=== PATIENT | female | born 1955 | race Two or more races ===

== ENCOUNTER 2020-01-21 11:45 | Inpatient (IN) | payer MEDICAID, OTHER ==
[~2020-01-21] VITALS: Ht 157.5 cm; Wt 102.0 kg
[~2020-01-21 11:45] MED LIST: BENA20TA14; CEPH500C; METF-370; PRAVASTATIN 40 MG
[2020-01-21 14:13] LABS: Basophils # (auto) 0 10 ^3/uL (0-0.2); Basophils % (auto) 0.3 % (0.0-2.0); Eosinophils # (auto) 0.1 10 ^3/uL (0-0.8); Eosinophils % (auto) 0.9 % (0.0-7.0); Hematocrit 39.8 % (36.0-46.0); Hemoglobin 12.8 g/dL (12.2-16.2); Lymphocytes # (auto) 1.1 10 ^3/uL (0.4-5.4); Mean Corpuscular Hemoglobin 28.4 pg (28.0-32.0); Mean Corpuscular Volume 88.7 fL (80.0-100.0); Monocytes # (auto) 0.4 10 ^3/uL (0-1.3); Monocytes % (auto) 5.3 % (0.0-12.0); Neutrophils # (auto) 6.7 10 ^3/uL (1.6-8.6); Neutrophils % (auto) 80.5 % (37.0-80.0); Nucleated Red Blood Cells % 0.1 %; Platelet Count (auto) 194 10^3/uL (140-450); Red Blood Cells 4.49 10^6/uL (4.0-5.20); Red Cell Distribution Width 14.5 % (11.8-14.3); White Blood Cell 8.3 10^3/uL (4.4-10.8)
[2020-01-21 14:23] LABS: Urine Bacteria NONE SEEN /hpf (None Seen); Urine Blood 3+ /uL (Negative); Urine WBC 8465 /hpf (0 - 5); Urine WBC Clumps PRESENT /hpf (None Seen)
[2020-01-21] MEDS ORDERED: ACETAMINOPHEN/CODEINE#3 (300/30mg) TAB PO ONE (14:45)
[2020-01-21] MEDS ORDERED: cefTRIAXone SOD 1,000 MG VL ONE (14:50)
[2020-01-21] MEDS ORDERED: cefTRIAXone 1GM/50ML D5W 50 ML IV ONE (15:00)
[2020-01-21] MEDS ORDERED: MORPHINE SULF INJ 2 MG/ML SYRINGE 1ML IV ONE (15:45)
[2020-01-21] MEDS ORDERED: SODIUM CHLORIDE 0.9% 1,000 ML IV ONE (15:45)
[2020-01-21] MEDS ORDERED: ONDANSETRON HCL 4 MG/2 ML VIAL IV ONE (15:45)
[2020-01-21] MEDS ORDERED: MORPHINE SULF INJ 2 MG/ML SYRINGE 1ML IV PRN ×3 (18:00→21:15)
[2020-01-21] MEDS ORDERED: NITROGLYCERIN 0.4 MG SL TAB SL PRN ×2 (18:00→21:15)
[2020-01-21 19:30] LABS: Anion Gap 10 (5-15); Blood Urea Nitrogen 24 mg/dL (7-18); Calcium 9.4 mg/dL (8.5-10.1); Carbon Dioxide 21 mmol/L (21-32); Chloride 106 mmol/L (98-107); Glucose 183 mg/dL (74-106); Sodium 137 mmol/L (136-145)
[2020-01-21] MEDS ORDERED: METF-929 PO (19:55)
[2020-01-21] MEDS ORDERED: BENA40TA83 PO (19:55)
[2020-01-21] MEDS ORDERED: GLIP5TAB12 PO (19:55)
[2020-01-21] MEDS ORDERED: PRAV20TA3 PO (19:55)
--- NOTE | 2020-01-21 20:25 | NUR ---
Received SBAR from Kurt, he states they will be bringing the patient up soon.
[2020-01-21 20:42] LABS: BUN/Creatinine Ratio 40.7; GFR African American 132 mL/min; GFR Non-African American 109 mL/min
[2020-01-21 20:43] LABS: Alanine Aminotransferase 28 U/L (13-56); Alkaline Phosphatase 88 U/L (45-117); Aspartate Aminotransferase 19 U/L (15-37); Bilirubin, Total < 0.1 mg/dL (0.2-1.0); Total Protein 7.9 g/dL (6.4-8.2)
--- NOTE | 2020-01-21 21:10 | NUR ---
Telemetry admit from ER RA ROXANAQUEL admitted to Telemetry unit after SBAR received. Patient oriented to KISHAN chapa RN, unit, room, bed, and unit policies regarding patient care and visiting hours. Patient now on continuous telemetry monitoring, tele box # 59 and telemetry reading on arrival to unit is NSR at 72bpm. Patient weighed by bedscale and encouraged to call if they need something. All questions and concerns addressed, patient verbalized understanding. Three way urethral hernandez is in place and hung below bladder, connected to continuous bladder irrigation. Urine is bright red/pink. Hernandez is free of kinks and draining. Patient is A/O x4, skin is intact, IV to right hand 20g, on RA, she is ambulatory. Call light is within reach, side rails up x2, bed is in the lowest position. Instructed on POC and to call for assistance.
[2020-01-21 21:15] VITALS: BP 120/58
[2020-01-21] MEDS ORDERED: DEXTROSE (50%) 50ML SYRG IV PRN (21:15)
[2020-01-21] MEDS ORDERED: HYDROcodone-ACET 5/325MG TAB PO PRN (21:15)
[2020-01-21] MEDS ORDERED: LORazepam 0.5 MG TAB PO PRN (21:15)
[2020-01-21] MEDS ORDERED: ACETAMINOPHEN 325 MG TAB PO PRN (21:15)
[2020-01-21] MEDS ORDERED: ALUM & MAG HYDROX-SIMETH LIQ(MAALOX) 30 ML PO PRN (21:15)
[2020-01-21] MEDS ORDERED: DOCUSATE SOD 100 MG CAP PO PRN (21:15)
[2020-01-21] MEDS ORDERED: ONDANSETRON HCL 4 MG/2 ML VIAL IV PRN (21:15)
[2020-01-21] MEDS ORDERED: LISINOPRIL 10 MG TAB PO ONE (21:15)
[2020-01-21 21:45] VITALS: BP 120/58
[2020-01-21] MEDS: ATORVASTATIN 20 MG TAB PO SCH (22:49)
[2020-01-21] MEDS: SODIUM CHLORIDE 0.9% 1,000 ML IV SCH (22:49)
[2020-01-21] MEDS: ACCU-CHEK COMFORT CURVE STRIP VI SCH (22:49)
[2020-01-21] MEDS: InsuLIN REG 1unit/0.01ml Soln (100units/ml) SC SCH (22:50)
[2020-01-21 23:22] LABS: INR 1.03 (0.9-1.15); Partial Thromboplastin Time 26.6 sec (23.0-31.2)
[2020-01-22 05:00] VITALS: BP 126/61
--- NOTE | 2020-01-22 05:10 | NUR ---
[facility] INHOUSE COVID SWAB COLLECTED AND WALKED TO LAB.
[2020-01-22] MEDS: ACCU-CHEK COMFORT CURVE STRIP VI SCH ×4 (06:35→21:29)
[2020-01-22] MEDS: InsuLIN REG 1unit/0.01ml Soln (100units/ml) SC SCH ×4 (06:35→21:30)
--- NOTE | 2020-01-22 07:40 | NUR ---
Opening Shift Note Assumed care of patient, awake and alert. No S/S of distress/SOB or pain. Instructed on POC and to call for assist PRN, will continue to monitor for changes Q1hr and PRN.
[2020-01-22] MEDS: LISINOPRIL 10 MG TAB PO SCH (08:39)
[2020-01-22 09:00] VITALS: BP 139/86
[2020-01-22 09:18] LABS: Cholesterol 236 mg/dL (< 200); HDL Cholesterol 61 mg/dL (40-59); LDL Cholesterol 165 mg/dL (< 100); Triglycerides 118 mg/dL (< 150)
[2020-01-22] MEDS ORDERED: CEFTRIAXONE SODIUM 2 GM in D5W 5% 50 ML IV SCH (10:00)
--- NOTE | 2020-01-22 10:14 | NUR ---
spoke to patient son password provided regarding plan of care. pt son asked how she can go to a different hospital for care, explained options to pt son pt son verbalized understanding
--- NOTE | 2020-01-22 10:33 | NUR ---
called OR to inquire on time and inform them pt is Estonian speaking and states the procedure hasn't been explained to her. per or they will call for her to come down i about an hour
[2020-01-22] MEDS: SODIUM CHLORIDE 0.9% 1,000 ML IV SCH (11:04)
--- NOTE | 2020-01-22 11:40 | NUR ---
MD LINN ROUNDED ON PATIENT
--- NOTE | 2020-01-22 12:39 | NUR ---
pt taken to pre op for procedure
[2020-01-22 13:04] VITALS: BP 125/54
[2020-01-22] MEDS ORDERED: ceFAZolin 1GM/50ML 50 ML IV ONE (14:17)
[2020-01-22] MEDS ORDERED: MEPERIDINE HCL (25 MG/ML) 1ML VIAL ONE (14:24)
[2020-01-22] MEDS ORDERED: METOCLOPRAMIDE HCL 5MG/ml INJ 2ml VIAL IV ONE (14:25)
[2020-01-22] MEDS ORDERED: MIDAZOLAM HCL 1MG/1ML-2 ML VIAL ONE (14:25)
[2020-01-22] MEDS ORDERED: fentaNYL CITRATE 100 MCG/2 ML VL ONE (14:25)
[2020-01-22] MEDS ORDERED: ePHEDrine SULFATE 50 MG/ML AMP IV PRN (14:45)
[2020-01-22] MEDS ORDERED: MORPHINE SULFATE 4 MG/ML SYR/VIAL IV PRN (14:45)
[2020-01-22] MEDS ORDERED: ONDANSETRON HCL 4 MG/2 ML VIAL IV PRN (14:45)
[2020-01-22] MEDS ORDERED: MIDAZOLAM HCL 1MG/1ML-2 ML VIAL IV PRN (14:45)
[2020-01-22] MEDS ORDERED: LABETALOL HCL 5 MG/ML 4ML SYRINGE IV PRN (14:45)
[2020-01-22] MEDS ORDERED: HYDROmorphone HCL 2 MG/ML VL IV PRN (14:45)
[2020-01-22] MEDS ORDERED: PROPOFOL 10 MG/ML 20 ML IV ONE (15:00)
[2020-01-22] MEDS ORDERED: DexAMETHasone SOD PHOS 10MG/1ML VIAL INJ ONE (15:00)
--- NOTE | 2020-01-22 15:50 | NUR ---
PT BACK IN ROOM PER KAVIN CURIEL IN PACU ESTELITA TOLD HER TO DISCONTINUE THE CBI
--- NOTE | 2020-01-22 16:30 | NUR ---
TEMITOPE CALLED BACK INFORMED HER THAT ESTELITA CHANGED THE ORDERS PT HAS DIET
[2020-01-22 17:00] VITALS: BP 135/54
--- NOTE | 2020-01-22 19:00 | NUR ---
Opening Shift Note Assumed care of patient, awake and alert. No S/S of distress/SOB or pain. Instructed on POC and to call for assist PRN, will continue to monitor for changes Q1hr and PRN. Patient in the lowest possible position with call light within reach.
[2020-01-22 20:00] VITALS: BP 136/68
--- NOTE | 2020-01-22 20:00 | NUR ---
Patient complained of pressure when she pees, upon examination the Prather was not flowing properly, secured Prather to side of right thigh and notice the urine begin to flow. Educated patient to let staff know if pressure builds again, in case of blocked flow. Will continue to monitor patient.
[2020-01-22] MEDS: ATORVASTATIN 20 MG TAB PO SCH (21:29)
[2020-01-22 22:00] VITALS: BP 136/68
[2020-01-23] MEDS: SODIUM CHLORIDE 0.9% 1,000 ML IV SCH (02:15)
[2020-01-23 05:00] VITALS: BP 113/50
[2020-01-23 06:32] LABS: Basophils # (auto) 0 10 ^3/uL (0-0.2); Basophils % (auto) 0.5 % (0.0-2.0); Eosinophils # (auto) 0.1 10 ^3/uL (0-0.8); Hematocrit 37.3 % (36.0-46.0); Hemoglobin 12.4 g/dL (12.2-16.2); Lymphocytes # (auto) 1.4 10 ^3/uL (0.4-5.4); Lymphocytes % (auto) 15.5 % (10.0-50.0); Mean Corpuscular Hgb Conc. 33.2 g/dL (32.0-36.0); Mean Corpuscular Volume 90.4 fL (80.0-100.0); Monocytes # (auto) 0.5 10 ^3/uL (0-1.3); Monocytes % (auto) 5.8 % (0.0-12.0); Neutrophils # (auto) 6.9 10 ^3/uL (1.6-8.6); Neutrophils % (auto) 77.2 % (37.0-80.0); Platelet Count (auto) 190 10^3/uL (140-450); Red Blood Cells 4.13 10^6/uL (4.0-5.20); Red Cell Distribution Width 14.6 % (11.8-14.3)
[2020-01-23] MEDS: ACCU-CHEK COMFORT CURVE STRIP VI SCH ×2 (06:45→12:30)
[2020-01-23 06:47] LABS: Potassium 3.7 mmol/L (3.5-5.1)
[2020-01-23] MEDS: InsuLIN REG 1unit/0.01ml Soln (100units/ml) SC SCH ×2 (06:51→13:21)
[2020-01-23 06:52] LABS: BUN/Creatinine Ratio 21.2; Calcium 8.1 mg/dL (8.5-10.1)
--- NOTE | 2020-01-23 08:30 | NUR ---
Prather Leaking Patient complained that bed is wet. Prather noted to be leaking. Added 1ml saline to balloon. Will reassess.
[2020-01-23 09:00] VITALS: BP 137/63
[2020-01-23] MEDS ORDERED: cefTRIAXone 1GM/50ML D5W 50 ML IV SCH (09:00)
[2020-01-23] MEDS: LISINOPRIL 10 MG TAB PO SCH (09:04)
--- NOTE | 2020-01-23 10:00 | NUR ---
Prather Catheter No more leak noted to Prather catheter.
--- NOTE | 2020-01-23 11:00 | NUR ---
Hospitalist Jjing Dr. Love at bedside with Belarusian speaking RN.
--- NOTE | 2020-01-23 11:57 | NUR ---
Nutrition Assessment Notes please see attached link for complete assessment Est Energy needs ABW 76 [id number] kcals (17-20 kcal/kgABW), Est Protein needs: 76-83 gms/day (1.0-1.1 gm/kgABW). Will continue to monitor and reassess prn. Addendum: 01/23/20 at [address] Amended: Links added.
[2020-01-23 12:58] VITALS: BP 148/75
[2020-01-23] MEDS ORDERED: CIPR-173 PO (13:59)
[2020-01-23 15:06] VITALS: BP 148/75
[2020-01-23 17:00] VITALS: BP 147/69
--- NOTE | 2020-01-23 17:00 | NUR ---
Discharge instructions given as ordered. Encourage to follow up with PMD as instructed. All questions and concerns addressed. Patient verbalized understanding. Medication reconciliation form completed and copy given to patient. IV removed with catheter intact and pressure dressing applied. Prather catheter left in place as per Dr. Ayers's order. Telemetry unit returned to ICU. Patient taken to vehicle via wheelchair with all personal belongings, accompanied by staff. No distress noted at time of departure. Explained to family members discharge instructions and importance of follow up appointment.
== END 2020-01-23 17:00 | disposition home or self-care (01) | DRG 445 ==
LOC: ER 11:45 → TELE 11:46 → TELE-WESTW 20:28
PROVIDERS: ADMIT Hospitalist; ATTEND Internal Medicine Nephrology
PROC: 0W3R8ZZ Control Bleeding in Genitourinary Tract, Via Natural or Artificial Opening Endoscopic (ICD-10-PCS; 2020-01-22)
PROC: 0TBB8ZX Excision of Bladder, Via Natural or Artificial Opening Endoscopic, Diagnostic (ICD-10-PCS; principal; 2020-01-22 14:30)
DX: N30.01 Acute cystitis with hematuria (principal); D49.4 Neoplasm of unspecified behavior of bladder; E78.5 Hyperlipidemia, unspecified; Z20.828 Contact with and (suspected) exposure to other viral communicable diseases; Z68.41 Body mass index [BMI] 40.0-44.9, adult; E11.9 Type 2 diabetes mellitus without complications; I10 Essential (primary) hypertension; E66.01 Morbid (severe) obesity due to excess calories; Z83.3 Family history of diabetes mellitus; Z79.84 Long term (current) use of oral hypoglycemic drugs
CPT/HCPCS: 36415; 71045; 74176; 80048; 80053; 80061; 81001; 82962; 83036; 84484; 85025; 85610; 85730; 86850; 86900; 86901; 87040; 93005; 96361; 96365; 96375; G0378; J0690; J0696; J1100; J1815; J2250; J2405; J2704; J7060

== ENCOUNTER 2020-02-10 16:40 | Inpatient (IN) | payer MEDICAID ==
[~2020-02-10] VITALS: Ht 162.6 cm; Wt 90.5 kg
[~2020-02-10 16:40] MED LIST changes: -BENA20TA14; +BENA40TA83 PO; -CEPH500C; +CIPR-173 PO; +GLIP5TAB12 PO; -METF-370; +METF-929 PO; +PRAV20TA3 PO; -PRAVASTATIN 40 MG
[2020-02-10 18:32] LABS: Urine Bacteria FEW /hpf (None Seen); Urine Blood 3+ /uL (Negative); Urine Mucus FEW (None Seen); Urine WBC 808 /hpf (0 - 5)
[2020-02-10 18:34] LABS: Urine Specific Gravity 1.022 (1.001-1.035)
[2020-02-10 18:39] LABS: Basophils # (auto) 0.1 10 ^3/uL (0-0.2); Basophils % (auto) 0.7 % (0.0-2.0); Eosinophils # (auto) 0.1 10 ^3/uL (0-0.8); Hematocrit 35.3 % (36.0-46.0); Hemoglobin 11.7 g/dL (12.2-16.2); Lymphocytes # (auto) 1.1 10 ^3/uL (0.4-5.4); Lymphocytes % (auto) 12.5 % (10.0-50.0); Mean Corpuscular Hemoglobin 29.4 pg (28.0-32.0); Mean Corpuscular Hgb Conc. 33.2 g/dL (32.0-36.0); Mean Corpuscular Volume 88.3 fL (80.0-100.0); Monocytes # (auto) 0.4 10 ^3/uL (0-1.3); Monocytes % (auto) 4.7 % (0.0-12.0); Neutrophils # (auto) 7.3 10 ^3/uL (1.6-8.6); Neutrophils % (auto) 81.1 % (37.0-80.0); Platelet Count (auto) 215 10^3/uL (140-450); Red Cell Distribution Width 14.5 % (11.8-14.3)
[2020-02-10 19:07] LABS: Albumin 3.5 g/dL (3.4-5.0); Calcium 8.9 mg/dL (8.5-10.1)
[2020-02-10 19:10] LABS: BUN/Creatinine Ratio 19.8; Bilirubin, Total 0.2 mg/dL (0.2-1.0); Total Protein 7.2 g/dL (6.4-8.2)
[2020-02-10] MEDS ORDERED: MORPHINE SULF INJ 2 MG/ML SYRINGE 1ML IV PRN ×3 (19:30→21:30)
[2020-02-10] MEDS ORDERED: NITROGLYCERIN 0.4 MG SL TAB SL PRN ×2 (19:30→21:30)
[2020-02-10] MEDS ORDERED: PRAV20TA3 PO (19:42)
[2020-02-10 21:30] VITALS: BP 136/68
[2020-02-10] MEDS ORDERED: ALUM & MAG HYDROX-SIMETH LIQ(MAALOX) 30 ML PO PRN (21:30)
[2020-02-10] MEDS: SODIUM CHLORIDE 0.9% 1,000 ML IV SCH (21:30)
[2020-02-10] MEDS ORDERED: ONDANSETRON HCL 4 MG/2 ML VIAL IV PRN (21:30)
[2020-02-10] MEDS ORDERED: DEXTROSE (50%) 50ML SYRG IV PRN (21:30)
[2020-02-10] MEDS ORDERED: hydrALAZINE HCL 25 MG TAB PO PRN (21:30)
[2020-02-10] MEDS ORDERED: CEFTRIAXONE SODIUM 2 GM in D5W 5% 50 ML IV ONE (21:30)
[2020-02-10] MEDS ORDERED: LORazepam 0.5 MG TAB PO PRN (21:30)
[2020-02-10] MEDS ORDERED: ACETAMINOPHEN 325 MG TAB PO PRN (21:30)
[2020-02-10] MEDS ORDERED: HYDROcodone-ACET 5/325MG TAB PO PRN (21:30)
--- NOTE | 2020-02-10 21:30 | NUR ---
Telemetry admit from ER YING SCHMIDT admitted to Telemetry unit.Patient oriented to HEIDI PEREZ, RN primary RN, unit, room, bed, and unit policies regarding patient care and visiting hours. Patient now on continuous telemetry monitoring, tele box #49 and telemetry reading on arrival to unit is SR 73. Patient placed on bedside oxygen, weighed by bedscale and encouraged to call if they need something. Patient is on continuous bladder irrigatin. Irigating clear pale fluid. No clots or blood noted. All questions and concerns addressed, patient verbalized understanding.
--- NOTE | 2020-02-10 21:42 | NUR ---
ADMISSION COMPLETE AND UPDATED RN. NOTIFIED RN OF VITALS ARE NEEDED, SKIN/ VTE, AND TEACHING RECORD.
[2020-02-10] MEDS: ACCU-CHEK COMFORT CURVE STRIP VI SCH (21:56)
[2020-02-10] MEDS: InsuLIN REG 1unit/0.01ml Soln (100units/ml) SC SCH (21:56)
[2020-02-10 22:00] VITALS: BP 136/68
[2020-02-10 22:22] LABS: Amphetamine Screen, Urine NEGATIVE (NEGATIVE); Barbiturate Scree,Urine NEGATIVE (NEGATIVE); Benzodiazephine Screen, Urine NEGATIVE (NEGATIVE); Cannabinoid Screen, Urine NEGATIVE (NEGATIVE); Cocaine Screen, Urine NEGATIVE (NEGATIVE); Opiate Scree,Urine NEGATIVE (NEGATIVE); Phencyclidine Screen, Urine NEGATIVE (NEGATIVE)
[2020-02-10] MEDS: PRAVASTATIN SODIUM 20 MG TAB PO SCH (22:43)
[2020-02-11 05:00] VITALS: BP 104/60
[2020-02-11] MEDS: InsuLIN REG 1unit/0.01ml Soln (100units/ml) SC SCH ×4 (06:43→22:31)
[2020-02-11] MEDS: ACCU-CHEK COMFORT CURVE STRIP VI SCH ×4 (06:43→22:19)
--- NOTE | 2020-02-11 07:26 | NUR ---
Closing note Endorsed care to day shift RN. NO SOB OR DISTRESS NOTED.
[2020-02-11 08:58] VITALS: BP 119/68
[2020-02-11] MEDS: CEFTRIAXONE SODIUM 2 GM in D5W 5% 50 ML IV SCH (09:53)
[2020-02-11] MEDS: LISINOPRIL 20 MG TAB PO SCH (10:09)
[2020-02-11 13:00] VITALS: BP 128/61
[2020-02-11] MEDS: SODIUM CHLORIDE 0.9% 1,000 ML IV SCH (13:21)
[2020-02-11 16:02] VITALS: BP 145/66
--- NOTE | 2020-02-11 16:03 | NUR ---
UROLOGY PRINCIPAL MECHANICAL ENGINEER KIERA YEPEZ TO SEE PT. POC DISCUSSED WITH PT. PER PRINCIPAL MECHANICAL ENGINEER TO STOP CBI AND SEE COLOR OF URINE IN 30MIN-1HR. PRINCIPAL MECHANICAL ENGINEER REASSESSED URINE. PER PRINCIPAL MECHANICAL ENGINEER TO DC CBI ORDERS TO KEEP UREÑA UPON DISCHARGE AND PT TO FOLLOW UP WITH UROLOGY AT CLINIC IN 1-2 WEEKS PT AWARE OF PLAN.
--- NOTE | 2020-02-11 16:05 | NUR ---
CBI DC PER END STAPLER's ORDER
--- NOTE | 2020-02-11 18:50 | NUR ---
URINE OUT POST CBI SB=[id number] YELLOW IN APPEARANCE.
--- NOTE | 2020-02-11 19:30 | NUR ---
Opening Shift Note Assumed care of patient, awake and alert. No S/S of distress/SOB or pain. Patient is a Luxembourgish speaker only. Instructed on POC and to call for assist PRN, will continue to monitor for changes Q1hr and PRN.
[2020-02-11 22:00] VITALS: BP 115/52
[2020-02-11] MEDS: PRAVASTATIN SODIUM 20 MG TAB PO SCH (22:19)
[2020-02-12 05:00] VITALS: BP 112/65
[2020-02-12 06:22] LABS: Basophils # (auto) 0 10 ^3/uL (0-0.2); Basophils % (auto) 0.6 % (0.0-2.0); Eosinophils # (auto) 0.2 10 ^3/uL (0-0.8); Eosinophils % (auto) 2.5 % (0.0-7.0); Hematocrit 35.1 % (36.0-46.0); Hemoglobin 11.7 g/dL (12.2-16.2); Lymphocytes # (auto) 1.4 10 ^3/uL (0.4-5.4); Lymphocytes % (auto) 20.9 % (10.0-50.0); Mean Corpuscular Hemoglobin 29.6 pg (28.0-32.0); Mean Corpuscular Hgb Conc. 33.4 g/dL (32.0-36.0); Mean Corpuscular Volume 88.6 fL (80.0-100.0); Monocytes # (auto) 0.5 10 ^3/uL (0-1.3); Monocytes % (auto) 7.6 % (0.0-12.0); Neutrophils # (auto) 4.7 10 ^3/uL (1.6-8.6); Neutrophils % (auto) 68.4 % (37.0-80.0); Nucleated Red Blood Cells % 0.1 %; Platelet Count (auto) 198 10^3/uL (140-450); Red Blood Cells 3.96 10^6/uL (4.0-5.20); Red Cell Distribution Width 14.4 % (11.8-14.3); White Blood Cell 6.9 10^3/uL (4.4-10.8)
[2020-02-12] MEDS: ACCU-CHEK COMFORT CURVE STRIP VI SCH ×4 (06:29→21:27)
[2020-02-12] MEDS: InsuLIN REG 1unit/0.01ml Soln (100units/ml) SC SCH ×4 (06:41→21:27)
[2020-02-12] MEDS: SODIUM CHLORIDE 0.9% 1,000 ML IV SCH ×2 (06:41→15:08)
[2020-02-12 07:00] LABS: Potassium 3.8 mmol/L (3.5-5.1)
[2020-02-12 07:05] LABS: BUN/Creatinine Ratio 24.1; Calcium 8.8 mg/dL (8.5-10.1)
[2020-02-12] MEDS: CEFTRIAXONE SODIUM 2 GM in D5W 5% 50 ML IV SCH (10:49)
[2020-02-12] MEDS: LISINOPRIL 20 MG TAB PO SCH (10:50)
--- NOTE | 2020-02-12 11:50 | NUR ---
CBI INITIATED NOW. PT TOLERATING THERAPY WELL. CALL LIGHT WITHIN REACH. WILL CONTINUE TO MONITOR.
[2020-02-12] MEDS ORDERED: AMINOCAPROIC ACID IV ONE ×3 (13:00→14:00)
[2020-02-12] MEDS ORDERED: SODIUM CHL 0.9% IV ONE ×3 (13:00→14:00)
--- NOTE | 2020-02-12 15:00 | NUR ---
PT REPORTS THAT SHE WALKS FINE AND DOES NOT NEED P.T. INTERVENTION.
[2020-02-12 16:34] VITALS: BP 117/60
--- NOTE | 2020-02-12 18:30 | NUR ---
CBI THERAPY IN PROGRESS-PT TOLERATING WELL. DENIES ANY DISCOMFORT AT MOMENT. CBI SYSTEM PATENT AND DRAINING. URINE LIGHT PINK TINGED IN APPEARANCE.
--- NOTE | 2020-02-12 20:00 | NUR ---
Opening Shift Note Assumed care of patient, awake and alert. No S/S of distress/SOB or pain. Instructed on POC and to call for assist PRN, will continue to monitor for changes Q1hr and PRN.
--- NOTE | 2020-02-12 20:25 | NUR ---
CBI DRAINING UREÑA CLEAR AT THIS TIME. WILL CONTINUE TO MONITOR.
[2020-02-12] MEDS: PRAVASTATIN SODIUM 20 MG TAB PO SCH (21:27)
[2020-02-12 22:00] VITALS: BP 113/52
[2020-02-13 05:00] VITALS: BP_SYST 104; BP_SYST 97; BP_DIAS 46; BP_DIAS 50
[2020-02-13 05:58] LABS: Hematocrit 33.3 % (36.0-46.0); Hemoglobin 11.2 g/dL (12.2-16.2)
[2020-02-13] MEDS: InsuLIN REG 1unit/0.01ml Soln (100units/ml) SC SCH ×4 (06:15→22:53)
[2020-02-13] MEDS: ACCU-CHEK COMFORT CURVE STRIP VI SCH ×4 (06:15→22:00)
--- NOTE | 2020-02-13 07:30 | NUR ---
Opening Shift Note Assuming care of patient at this time. Patient is awake and alert. Patient denies pain. Patient shows no signs or symptoms of distress or shortness of breath. Bed is locked and lowered with side rails up x2. Instructed patient on the plan of care for today and to call for assistance as needed. Call light within reach.
[2020-02-13 09:00] VITALS: BP 116/57
[2020-02-13] MEDS: LISINOPRIL 20 MG TAB PO SCH (09:55)
[2020-02-13] MEDS ORDERED: PATIENTS OWN MEDICATION PO SCH (10:00)
[2020-02-13] MEDS: SODIUM CHLORIDE 0.9% 1,000 ML IV SCH (10:30)
--- NOTE | 2020-02-13 11:00 | NUR ---
CBI Continuous bladder irrigation has been stopped. Patient has had clear output since last night. Will discontinue CBI at this time and continue to monitor urine output.
[2020-02-13] MEDS ORDERED: AMINOCAPROIC ACID IR ONE (12:30)
[2020-02-13] MEDS ORDERED: SODIUM CHLORIDE IRRIGATION IR ONE (12:30)
--- NOTE | 2020-02-13 12:30 | NUR ---
CBI Restarted CBI restarted at this time. Patient's hernandez is beginning to show morejon red colored urine at this time. Angeles Santiago NP aware. New orders to be put in.
--- NOTE | 2020-02-13 12:37 | NUR ---
Page to Jack, JACQUARD LOOM CARD CHANGER Page to Jack, to clarify orders for Amicar. Awaiting callback.
--- NOTE | 2020-02-13 12:45 | NUR ---
Call to pharmacy Call to pharmacy at this time. Clarified orders with pharmacist for CBI medication. Pharmacist states that order will be ready in 15 minutes.
--- NOTE | 2020-02-13 12:45 | NUR ---
Callback from KEARA Santiago Callback from KEARA Santiago. The order for Amicar was clarified.
[2020-02-13 13:00] VITALS: BP 126/63
--- NOTE | 2020-02-13 13:18 | NUR ---
CBI w/ medication CBI with medication started at this time.
--- NOTE | 2020-02-13 13:33 | NUR ---
Endorse care Care endorsed to VEENA Yo, at this time.
--- NOTE | 2020-02-13 14:00 | NUR ---
Received pt's report, pt resting in bed, call light with in reach, mary with CBI, output clear red, pt denies pain at this time, will continue to monitor pt.
--- NOTE | 2020-02-13 14:35 | NUR ---
Received call from Dr. Rashid, doctor informed that pt started bleeding again and that MERLINE White started the pt on Amicar on the irrigation, as per doctor, hold the d/c and continue the CBI.
[2020-02-13 17:00] VITALS: BP 95/68
--- NOTE | 2020-02-13 19:30 | NUR ---
Opening Shift Note Assumed care of patient, awake and alert. No S/S of distress/SOB or pain. Insructed on POC and to callfor assist PRN, will continue to monitor for changes Q1hr and PRN.
[2020-02-13 22:18] VITALS: BP_SYST 0; BP_SYST 119; BP_DIAS 58
[2020-02-13] MEDS: PRAVASTATIN SODIUM 20 MG TAB PO SCH (22:46)
[2020-02-14 05:46] VITALS: BP 114/58
[2020-02-14 06:25] LABS: Hematocrit 37.1 % (36.0-46.0); Hemoglobin 12.4 g/dL (12.2-16.2)
[2020-02-14] MEDS: ACCU-CHEK COMFORT CURVE STRIP VI SCH ×4 (06:28→22:02)
[2020-02-14] MEDS: InsuLIN REG 1unit/0.01ml Soln (100units/ml) SC SCH ×4 (06:32→22:03)
[2020-02-14 06:44] LABS: Calcium 9.1 mg/dL (8.5-10.1); Potassium 3.6 mmol/L (3.5-5.1)
--- NOTE | 2020-02-14 07:29 | NUR ---
ENDORSED CARE OF PT TO AM RN.
--- NOTE | 2020-02-14 08:00 | NUR ---
Morning note Patient resting in bed with even and unlabored respirations on room air, no distress noted. CBI in place per MD order. Prather catheter is patent and draining clear hematuria urine. Patient tolerating well. POC, fall precautions and to call for assistance instructed to patient through translation. Patient verbalized understanding. Fall precautions in place with call light within reach.
[2020-02-14 08:29] VITALS: BP 126/74
[2020-02-14] MEDS: LISINOPRIL 20 MG TAB PO SCH (09:27)
[2020-02-14] MEDS ORDERED: PATIENTS OWN MEDICATION PO SCH (10:00)
--- NOTE | 2020-02-14 11:54 | NUR ---
POC discussed with Dr. Shaikh NOONAN to continue per MD. Hematuria present with small blood clots noted.
--- NOTE | 2020-02-14 12:24 | NUR ---
Nutrition Assessment Est energy needs 2769-0127 kcal (16-18kcal/kg BW 96.5kg) Est protein needs 55-71g (1-1.3g/kg IBW 55kg) Will reassess prn. Addendum: 02/14/20 at [address] Amended: Links added.
[2020-02-14 12:47] VITALS: BP 133/61
--- NOTE | 2020-02-14 15:03 | NUR ---
CBI continues per MD order hematuria noted with small clots noted. Call light within reach.
[2020-02-14 17:32] VITALS: BP 92/56
--- NOTE | 2020-02-14 18:43 | NUR ---
Closing note Patient resting in bed with even and unlabored respirations on room air,no distress noted. CBI continues per MD order. Urine is clear with small amount of blood clots noted. Hematuria noted in the catheter bag. Clear urine in the Prather tube. Fall precautions in place with call light within reach.
--- NOTE | 2020-02-14 18:50 | NUR ---
Called lab to request COVID in-house swab Addendum: 02/14/20 at 1915 by Tamiko Joaquin RN Disregard note. Incorrect patient.
--- NOTE | 2020-02-14 19:14 | NUR ---
Care endorsed to VEENA Schafer.
[2020-02-14 21:42] VITALS: BP 116/63
[2020-02-14] MEDS: PRAVASTATIN SODIUM 20 MG TAB PO SCH (22:07)
[2020-02-15 05:11] VITALS: BP 115/55
[2020-02-15] MEDS: InsuLIN REG 1unit/0.01ml Soln (100units/ml) SC SCH ×4 (06:11→22:10)
[2020-02-15] MEDS: ACCU-CHEK COMFORT CURVE STRIP VI SCH ×4 (06:11→22:11)
--- NOTE | 2020-02-15 07:27 | NUR ---
CARE ENDORSED TO NUHA CURIEL
[2020-02-15 09:00] VITALS: BP 120/51
[2020-02-15] MEDS: LISINOPRIL 20 MG TAB PO SCH (10:03)
[2020-02-15 13:00] VITALS: BP 113/55
--- NOTE | 2020-02-15 14:45 | NUR ---
MD was at bedside - Dr. Young POC translated for MD to patient by staff member. Patient informed of bladder biopsy result. Patient verbalized understanding.
[2020-02-15 17:00] VITALS: BP 112/52
--- NOTE | 2020-02-15 17:30 | NUR ---
CBI flow reduced Urine showing reduction of hematuria. Urine color yellow with hematuria tint. Reduced CBI flow slightly.
--- NOTE | 2020-02-15 18:25 | NUR ---
CBI Stopped Urine is clear, instructed patient to instruct staff of any discomfort. Patient verbalized understanding.
--- NOTE | 2020-02-15 18:50 | NUR ---
Closing note Patient is resting in bed with no signs or symptoms of distress, SOB or pain. Fall precautions in place and call light is within reach.
--- NOTE | 2020-02-15 19:01 | NUR ---
Care endorsed Care endorsed to Gilmar CURIEL
[2020-02-15] MEDS: PRAVASTATIN SODIUM 20 MG TAB PO SCH (22:12)
[2020-02-15 23:27] VITALS: BP_SYST 0; BP_SYST 109; BP_DIAS 55
[2020-02-16 05:19] VITALS: BP_SYST 0; BP_SYST 117; BP_DIAS 57
[2020-02-16] MEDS: InsuLIN REG 1unit/0.01ml Soln (100units/ml) SC SCH ×4 (05:49→22:44)
[2020-02-16] MEDS: ACCU-CHEK COMFORT CURVE STRIP VI SCH ×4 (05:49→22:41)
[2020-02-16 06:24] LABS: Basophils # (auto) 0 10 ^3/uL (0-0.2); Basophils % (auto) 0.6 % (0.0-2.0); Eosinophils # (auto) 0.2 10 ^3/uL (0-0.8); Eosinophils % (auto) 2.6 % (0.0-7.0); Hematocrit 35.6 % (36.0-46.0); Hemoglobin 12.1 g/dL (12.2-16.2); Lymphocytes # (auto) 1.7 10 ^3/uL (0.4-5.4); Lymphocytes % (auto) 21.7 % (10.0-50.0); Mean Corpuscular Volume 88.2 fL (80.0-100.0); Monocytes # (auto) 0.6 10 ^3/uL (0-1.3); Monocytes % (auto) 7.1 % (0.0-12.0); Neutrophils # (auto) 5.5 10 ^3/uL (1.6-8.6); Nucleated Red Blood Cells % 0.1 %; Platelet Count (auto) 170 10^3/uL (140-450); Red Blood Cells 4.04 10^6/uL (4.0-5.20); Red Cell Distribution Width 14.2 % (11.8-14.3)
[2020-02-16 06:38] LABS: Potassium 3.9 mmol/L (3.5-5.1)
[2020-02-16 07:04] LABS: Calcium 8.9 mg/dL (8.5-10.1)
--- NOTE | 2020-02-16 07:33 | NUR ---
PT RESTING IN BED LOWEST POSITION, SIDE RAILS UP, NO COMPLAINTS NOTED. ENDORSED CARE TO AM RN.
[2020-02-16 08:00] VITALS: BP 102/57
--- NOTE | 2020-02-16 08:45 | NUR ---
Opening Shift Note Assumed care of patient, awake, alert sitting in semi-kerns's position upon entering the room. No S/S of distress/SOB or pain. CBI currently stopped. Urine looks red with minimal debris. Lungs are clear bilaterally. Skin on the left side of the back is red with no complaints of irritation or pain noted. Instructed on POC and to call for assist PRN. Bed is in lowest position and the call light is within reach of the patient. Will continue to monitor for changes Q1hr and PRN.
[2020-02-16 09:00] VITALS: BP_SYST 0; BP_SYST 102; BP_DIAS 57
[2020-02-16] MEDS: LISINOPRIL 20 MG TAB PO SCH (10:00)
--- NOTE | 2020-02-16 11:00 | NUR ---
Dr. Rashid at bedside Dr. Rashid at bedside. Requesting that Dr. Ayers be notified concerning hematuria. DIGITAL OPERATIONS ANALYST was seen and asked to see the patient.
[2020-02-16 13:00] VITALS: BP_SYST 0; BP_SYST 120; BP_DIAS 57
--- NOTE | 2020-02-16 14:09 | NUR ---
Prather catheter dc'd Order to discontinue Prather catheter. Prather D/C with clean technique following deflation of balloon. Patient tolerated well with no complaints of pain. Continue care. Addendum: 02/16/20 at 1637 by ILIANA KIRKPATRICK RN RN Pt states that she has been able to void since d/c. Pt still reports hematuria present. Will continue to monitor.
[2020-02-16 17:00] VITALS: BP_SYST 0; BP_SYST 131; BP_DIAS 79
--- NOTE | 2020-02-16 22:00 | NUR ---
Patient voided. No blood in urine. Clear and yellow.
[2020-02-16] MEDS: PRAVASTATIN SODIUM 20 MG TAB PO SCH (22:41)
[2020-02-16 23:05] VITALS: BP_SYST 0; BP_SYST 127; BP_DIAS 59
[2020-02-17 05:00] VITALS: BP 137/65
[2020-02-17] MEDS: ACCU-CHEK COMFORT CURVE STRIP VI SCH ×2 (05:59→11:35)
[2020-02-17] MEDS: InsuLIN REG 1unit/0.01ml Soln (100units/ml) SC SCH ×2 (06:10→11:35)
--- NOTE | 2020-02-17 06:28 | NUR ---
Patient has voided multiple times thru out shift and no blood or clots noted in urine. Urine clear.
[2020-02-17 06:49] LABS: Hematocrit 35.2 % (36.0-46.0)
[2020-02-17 08:00] VITALS: BP 116/45
--- NOTE | 2020-02-17 08:30 | NUR ---
Opening Shift Note Assumed care of patient, awake, alert and lying quietly upon entering the room. No S/S of distress or SOB. Patient complained of pain coming from her left foot. There is a small raised area on the superior portion of the foot with no signs of redness but is soft, moveable and tender upon palpation. Patient was given a cold pack and encouraged to call if the pain or size increased. Patient declined pain medication at this time. Instructed on POC and to call for assist PRN. Patient verbalized understanding. Will continue to monitor for changes Q1hr and PRN.
[2020-02-17 09:00] VITALS: BP 116/45
[2020-02-17] MEDS: LISINOPRIL 20 MG TAB PO SCH (10:00)
--- NOTE | 2020-02-17 10:50 | NUR ---
Dr. Rashid at bedside Dr. Rashid at bedside discussing the POC with the patient. All questions and concerns were addressed at this time. Patient encouraged to work with PT. PT was paged at this time.
--- NOTE | 2020-02-17 11:00 | NUR ---
assessment Patient has no post discharge needs identified at this time. Addendum: 02/17/20 at 1622 by Keira REEVES Amended: Links added.
[2020-02-17 13:00] VITALS: BP 135/70
[2020-02-17 14:56] VITALS: BP 135/70
== END 2020-02-17 16:11 | disposition home or self-care (01) | DRG 463 ==
LOC: ER 16:40 → TELE 16:41 → TELE-WESTW 20:35
PROVIDERS: ADMIT Hospitalist; ATTEND Internal Medicine
DX: N30.91 Cystitis, unspecified with hematuria (principal); N13.6 Pyonephrosis; E11.65 Type 2 diabetes mellitus with hyperglycemia; Z79.84 Long term (current) use of oral hypoglycemic drugs; I10 Essential (primary) hypertension; E78.5 Hyperlipidemia, unspecified; D63.8 Anemia in other chronic diseases classified elsewhere; E11.21 Type 2 diabetes mellitus with diabetic nephropathy; E66.01 Morbid (severe) obesity due to excess calories; Z68.34 Body mass index [BMI] 34.0-34.9, adult; Z79.899 Other long term (current) drug therapy; Z85.42 Personal history of malignant neoplasm of other parts of uterus; Z90.710 Acquired absence of both cervix and uterus; N32.89 Other specified disorders of bladder
CPT/HCPCS: 36415; 74176; 80048; 80053; 80307; 81001; 82962; 83036; 83735; 84443; 84484; 85014; 85018; 85025; 87040; 87081; 87086; 97163; G0378; J0696; J1815; J7060

== ENCOUNTER 2020-08-13 22:09 | Emergency (ER) | payer MEDICAID ==
[~2020-08-13] VITALS: Ht 162.6 cm; Wt 90.3 kg
[~2020-08-13 22:09] MED LIST changes: -CIPR-173 PO
[2020-08-14] MEDS ORDERED: KETOROLAC TROMETH 30 MG/ML 1ML VIAL IV ONE (00:30)
[2020-08-14] MEDS ORDERED: ACETAMINOPHEN 500 MG TAB PO ONE (00:30)
[2020-08-14 00:39] LABS: Basophils # (auto) 0 10 ^3/uL (0-0.2); Basophils % (auto) 0.6 % (0.0-2.0); Eosinophils # (auto) 0.1 10 ^3/uL (0-0.8); Eosinophils % (auto) 1.9 % (0.0-7.0); Hematocrit 34.3 % (36.0-46.0); Hemoglobin 11.6 g/dL (12.2-16.2); Lymphocytes # (auto) 1.8 10 ^3/uL (0.4-5.4); Lymphocytes % (auto) 26.5 % (10.0-50.0); Mean Corpuscular Hemoglobin 29.6 pg (28.0-32.0); Mean Corpuscular Hgb Conc. 33.9 g/dL (32.0-36.0); Mean Corpuscular Volume 87.1 fL (80.0-100.0); Monocytes # (auto) 0.5 10 ^3/uL (0-1.3); Monocytes % (auto) 7.3 % (0.0-12.0); Neutrophils # (auto) 4.4 10 ^3/uL (1.6-8.6); Neutrophils % (auto) 63.7 % (37.0-80.0); Nucleated Red Blood Cells % 0.2 %; Platelet Count (auto) 198 10^3/uL (140-450); Red Blood Cells 3.94 10^6/uL (4.0-5.20); Red Cell Distribution Width 15.1 % (11.8-14.3); White Blood Cell 6.9 10^3/uL (4.4-10.8)
[2020-08-14 00:52] LABS: Albumin 3.6 g/dL (3.4-5.0); Calcium 9.3 mg/dL (8.5-10.1); Potassium 3.9 mmol/L (3.5-5.1)
[2020-08-14 01:02] LABS: BUN/Creatinine Ratio 26.8; Bilirubin, Total 0.3 mg/dL (0.2-1.0); CRP High Sensitivity 0.55 mg/dL (< 0.3); Total Protein 7.3 g/dL (6.4-8.2)
[2020-08-14 01:21] LABS: Urine Bacteria NONE SEEN /hpf (None Seen); Urine Blood Negative /uL (Negative); Urine Specific Gravity 1.007 (1.001-1.035); Urine WBC 3 /hpf (0 - 5)
[2020-08-14 02:00] VITALS: BP 130/52
== END 2020-08-14 02:42 | disposition home or self-care (01) ==
LOC: ER 22:09
DX: M54.42 Lumbago with sciatica, left side (principal); I83.92 Asymptomatic varicose veins of left lower extremity; E11.9 Type 2 diabetes mellitus without complications; E78.5 Hyperlipidemia, unspecified; I10 Essential (primary) hypertension; Z90.710 Acquired absence of both cervix and uterus
CPT/HCPCS: 36415; 80053; 81001; 85025; 85652; 86141

== ENCOUNTER 2021-04-04 20:42 | Emergency (ER) | payer MEDICAID ==
[~2021-04-04] VITALS: Ht 160 cm; Wt 95.3 kg
[2021-04-04 20:49] VITALS: BP 153/60
== END 2021-04-05 01:32 | disposition left against medical advice (07) ==
LOC: ER 20:44
DX: R42 Dizziness and giddiness (principal); R51.9 Headache, unspecified; Z20.822 Contact with and (suspected) exposure to COVID-19; Z53.21 Procedure and treatment not carried out due to patient leaving prior to being seen by health care provider
CPT/HCPCS: 36415; 87426

== ENCOUNTER 2023-12-26 09:03 | Emergency (ER) | payer MEDICARE, MEDICAID ==
[~2023-12-26] VITALS: Ht 152.4 cm; Wt 79.3 kg
[~2023-12-26 09:03] MED LIST changes: -GLIP5TAB12 PO; +GLIP5TAB21 PO
[2023-12-26 10:40] LABS: Basophils # (auto) 0 10 ^3/uL (0-0.2); Basophils % (auto) 0.3 % (0.0-2.0); Eosinophils # (auto) 0.2 10 ^3/uL (0-0.8); Eosinophils % (auto) 1.8 % (0.0-7.0); Hematocrit 38.4 % (36.0-46.0); Lymphocytes # (auto) 1.1 10 ^3/uL (0.4-5.4); Lymphocytes % (auto) 12.3 % (10.0-50.0); Mean Corpuscular Hemoglobin 30.6 pg (28.0-32.0); Mean Corpuscular Volume 90.2 fL (80.0-100.0); Monocytes # (auto) 0.6 10 ^3/uL (0-1.3); Monocytes % (auto) 6.9 % (0.0-12.0); Neutrophils # (auto) 7.2 10 ^3/uL (1.6-8.6); Neutrophils % (auto) 78.7 % (37.0-80.0); Nucleated Red Blood Cells % 0.1 %; Platelet Count (auto) 175 10^3/uL (140-450); Red Blood Cells 4.26 10^6/uL (4.0-5.20); Red Cell Distribution Width 14.8 % (11.8-14.3); White Blood Cell 9.2 10^3/uL (4.4-10.8)
[2023-12-26 10:48] LABS: Chloride 106 mmol/L (98-107); Potassium 3.9 mmol/L (3.5-5.1); Sodium 140 mmol/L (136-145)
[2023-12-26 10:49] LABS: Anion Gap 5 (5-15); Calcium 9.8 mg/dL (8.7-10.4); Carbon Dioxide 29 mmol/L (20-30)
[2023-12-26 10:54] LABS: BUN/Creatinine Ratio 19.7 (10.0-20.0); Blood Urea Nitrogen 12 mg/dL (9-23); Glucose 127 mg/dL (74-106)
[2023-12-26 11:34] VITALS: BP 153/66; PULSE 65; RESP 18; TEMP 98.4; O2SAT 100
[2023-12-26] MEDS: ACETAMINOPHEN 325 MG TAB PO ONE (11:42)
== END 2023-12-26 11:43 | disposition home or self-care (01) ==
LOC: ER 09:03
DX: M79.661 Pain in right lower leg (principal); I82.401 Acute embolism and thrombosis of unspecified deep veins of right lower extremity; I10 Essential (primary) hypertension; E11.9 Type 2 diabetes mellitus without complications; E78.5 Hyperlipidemia, unspecified; Z90.710 Acquired absence of both cervix and uterus
CPT/HCPCS: 36415; 73590; 80048; 83880; 85025; 85379; 93971